=== PATIENT | female | born 1975 | race Caucasian/White ===

== ENCOUNTER 2017-12-27 02:51 | Emergency (ER) | payer SELFPAY ==
[~2017-12-27] VITALS: Ht 147.3 cm; Wt 130.7 kg
[2017-12-27 03:02] VITALS: BP 105/70
--- NOTE | 2017-12-27 03:02 | NUR ---
TO BED # 2 AMBULATORY, REPORT GIVEN TO CEZAR CHANDLER
--- NOTE | 2017-12-27 03:15 | NUR ---
Dr. Wood evaluating patient at bedside.
--- NOTE | 2017-12-27 03:23 | NUR ---
PT BIB SELF C/O NUMBNESS TO LEFT ARM AND UPPER LIP SINCE 5 PM YESTERDAY. 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 PT STANDING AT BEDSIDE, CALM, ACTING APPROPRIATE. PT DENIES PMH, NO N/V/D, NO CP OR SOB.
--- NOTE | 2017-12-27 03:26 | NUR ---
EKG PERFORMED AT BEDSIDE WITH FAMILY MEMBER PRESENT. PT COVERED IN GOWN DURING PROCEDURE
[2017-12-27 03:56] LABS: BASOPHILS % (AUTO) 0.4 % (0.0-2.0); EOSINOPHILS # (AUTO) 0.3 K/uL (0-0.4); HEMATOCRIT 36.9 % (36-48); HEMOGLOBIN 12.3 g/dL (12.0-16.0); LYMPHOCYTES # (AUTO) 2.8 K/uL (2.5-16.5); LYMPHOCYTES % (AUTO) 29.7 % (20.5-51.1); MEAN CORPUSCULAR HEMOGLOBIN 30 pg (27-31); MEAN CORPUSCULAR HGB CONC 33 g/dL (33-37); MONOCYTES # (AUTO) 0.7 K/uL (0.8-1.0); MONOCYTES % (AUTO) 7.1 % (1.7-9.3); NEUTROPHILS # (AUTO) 5.7 K/uL (1.8-7.7); NEUTROPHILS % (AUTO) 59.8 % (42.2-75.2); PLATELET COUNT (AUTO) 346 K/uL (140-450); RED CELL DISTRIBUTION WIDTH 13.2 % (11.6-13.7); WHITE BLOOD COUNT (AUTO) 9.5 K/uL (4.8-10.8)
--- NOTE | 2017-12-27 04:11 | NUR ---
PT TAKEN TO CT
[2017-12-27 04:36] LABS: ANION GAP 8.3 (8-16); CARBON DIOXIDE 28.5 mmol/L (21-32); CREATININE 0.7 mg/dL (0.6-1.3); POTASSIUM 3.8 mmol/L (3.5-5.1)
[2017-12-27 04:41] LABS: ALBUMIN 3.4 g/dL (3.4-5.0); TOTAL BILIRUBIN 0.3 mg/dL (0.0-1.0)
[2017-12-27 05:02] LABS: APPEARANCE,URINE CLEAR (CLEAR)
[2017-12-27 05:03] LABS: COLOR,URINE STRAW (YELLOW)
[2017-12-27 05:05] LABS: BILIRUBIN,URINE NEGATIVE (NEGATIVE); BLOOD, URINE NEGATIVE (NEGATIVE); LEUKOCYTE ESTERASE ,URINE NEGATIVE (NEGATIVE); NITRITE, URINE NEGATIVE (NEGATIVE); UGLUCOSE NEGATIVE (NEGATIVE)
[2017-12-27 06:00] VITALS: BP 107/68
== END 2017-12-27 06:02 | disposition home or self-care (01) ==
LOC: MED 02:51
DX: R20.2 Paresthesia of skin (principal); R94.31 Abnormal electrocardiogram [ECG] [EKG]
CPT/HCPCS: 36415; 70450; 71045; 80053; 81003; 81025; 84484; 85025; 93005; 99285; Q0092